=== PATIENT | female | born 1940 | race Caucasian/White ===

== ENCOUNTER 2017-01-31 19:17 | Inpatient (IN) | payer MEDICARE ==
[2017-01-31] MEDS ORDERED: SODIUM CHLORIDE 0.9% 1,000 ML IV STA (19:33)
[2017-01-31] MEDS ORDERED: IPRATROPIUM-ALBUTEROL 3 ML NEB INHALATION STA (19:33)
[2017-01-31 20:06] LABS: Basophils # (A) 0.1 k/uL (0-0.2); Basophils % (A) 1 %; CHCM 32.4; Eosinophils # (A) 0.3 k/uL (0-0.7); Eosinophils % (A) 4 %; HCT 35.3 % (34.0-46.0); HDW 2.57; HGB 11.3 gm/dL (11.4-16.0); Luc # (Auto) 0.21; Luc % (Auto) 3; Lymphocytes # (A) 2.6 k/uL (1.0-4.8); Lymphocytes % (A) 32 %; MCH 34.7 pg (25.0-35.0); MCHC 31.9 g/dL (31.0-37.0); MCV 108.5 fL (80.0-100.0); Macrocytosis Moderate; Mean Platelet Volume 7.6; Monocytes # (A) 0.5 k/uL (0-1.0); Monocytes % (A) 6 %; Neutrophils # (A) 4.5 k/uL (1.3-7.7); Neutrophils % (A) 55 %; RBC 3.25 m/uL (3.80-5.40); RDW 13.4 % (11.5-15.5); WBC 8.2 k/uL (3.8-10.6); WBC (Perox) 7.97
[2017-01-31 20:10] LABS: Calcium 10.9 mg/dL (8.4-10.2); Magnesium 1.8 mg/dL (1.6-2.3); Potassium 3.8 mmol/L (3.5-5.1); Total Bilirubin 0.3 mg/dL (0.2-1.3)
--- NOTE | 2017-01-31 20:15 | XR ---
EXAMINATION TYPE: XR chest 2V DATE OF EXAM: 01/31/2017 COMPARISON: 06/01/2015 HISTORY: Difficulty breathing TECHNIQUE: Frontal and lateral views of the chest are obtained. FINDINGS: Heart is enlarged. There are sternal wires. There is no heart failure. Lungs are clear of infiltrate. Bony thorax appears intact. There is spurring in thoracic spine. IMPRESSION: Mild cardiomegaly. No acute lung disease. There is improved aeration of left lung base c ompared to old exam.
[2017-01-31 20:21] LABS: Creatine Kinase 41 U/L (30-135)
[2017-01-31 20:25] LABS: INR 0.9 (<1.2); Prothrombin Time 9.4 sec (9.0-12.0)
[2017-01-31 20:27] LABS: Partial Thromboplastin Time 20.5 sec (22.0-30.0)
[2017-01-31 20:32] LABS: Creatine Kinase MB 0.4 ng/mL (0.0-2.4); Troponin I <0.012 ng/mL (0.000-0.034)
[2017-01-31] MEDS ORDERED: methylPREDNISolone SOD SUCCI 125 MG/2 ML VIAL IV STA (20:49)
--- NOTE | 2017-01-31 20:49 | ED ---
General Adult HPI - General Chief complaint: Shortness of Breath Stated complaint: Diff Breathing Time Seen by Provider: 01/31/17 19:33 Source: patient, RN notes reviewed, old records reviewed Mode of arrival: wheelchair Limitations: no limitations - History of Present Illness Initial comments: This is a 76-year-old female with a significant and extensive medical history coming in with shortness of breath. Symptoms of COPD and CHF. Patient states she can't sleep at night [place] L flap and has no ability to function overdo activity without getting severely short of breath. No fevers, does have increased cough and congestion no travel history. Patient denies recent hospitalization - Related Data Home Medications Medication Instructions Recorded Confirmed Acetaminophen-Codeine 300-30mg 1 tab PO Q6H PRN 01/30/15 05/30/16 [Tylenol w/codeine #3] Aspirin 81 mg PO DAILY 01/30/15 05/30/16 Atorvastatin [Lipitor] 80 mg PO HS 01/30/15 05/30/16 Clopidogrel [Plavix] 75 mg PO DAILY 01/30/15 05/30/16 Fluticasone Nasal [place] [Flonase 2 spray EA NOSTRIL DAILY PRN 01/30/15 05/30/16 Nasal [place]] Glucosam/Beni-Msm1/C/Zechariah/Bosw 1 tab PO BID 01/30/15 05/30/16 [Glucosamine-Chondroitin Tablet] Levothyroxine Sodium [Synthroid] 150 mcg PO QAM 01/30/15 05/30/16 Meclizine [Antivert] 25 mg PO HS 01/30/15 05/30/16 Multivitamins, Thera [Multivitamin 1 tab PO DAILY 01/30/15 05/30/16 (formulary)] Calcium Carbonate/Vitamin D3 1 tab PO DAILY 03/27/15 05/30/16 [Calcium 600-Vit D3 400 Tablet] Docusate Sodium [Dok] 100 mg PO HS PRN 03/27/15 05/30/16 Magnesium Oxide [Mag-Ox] 400 mg PO DAILY 03/27/15 05/30/16 Furosemide [Lasix] 20 mg PO 1600 03/28/15 05/30/16 Allopurinol [Zyloprim] 200 mg PO HS 05/15/16 05/30/16 Folic Acid 1 mg PO DAILY 05/15/16 05/30/16 Furosemide [Lasix] 40 mg PO QAM 05/15/16 05/30/16 Insulin Glargine [Lantus] 50 unit SQ HS 05/15/16 05/30/16 Insulin Glulisine [Apidra Solostar] 20 unit SQ HS PRN 05/30/16 05/30/16 Previous Rx's Medication Instructions Recorded Isosorbide Mononitrate ER [Imdur] 60 mg PO BID 1 Days tab 02/04/15 Thiamine [Vitamin B-1] 100 mg PO DAILY@1200 #30 tab 02/04/15 Metoprolol Tartrate [Lopressor] 25 mg PO BID #60 tab 03/28/15 Allergies Allergy/AdvReac Type Severity Reaction Status Date / Time hydrocodone bitartrate Allergy Unknown Nausea & Verified 01/31/17 19:23 [From Lortab] Vomiting mupirocin Allergy Rash/Hives Verified 01/31/17 19:23 Review of Systems ROS Statement: Those systems with pertinent positive or pertinent negative responses have been documented in the HPI. ROS Other: All systems not noted in ROS Statement are negative. Past Medical History Past Medical History: Coronary Artery Disease (CAD), Cancer, Chest Pain / Angina , Diabetes Mellitus, Eye Disorder, Hyperlipidemia, Hypertension, Myocardial Infarction ([place]), Osteoarthritis (OA), Pneumonia, Renal Disease, Thyroid Disorder Additional Past Medical History / Comment(s): Hx chest pain, nothing recent, hx pneumonia about a yr ago, hx skin cancer on right arm, gout, bilateral cataracts , current skin cancer on right calf. States kidneys do not function at 100%. Last Myocardial Infarction Date:: 03/2015 History of Any Multi-Drug Resistant Organisms: None Reported Past Surgical History: Cholecystectomy, Coronary Bypass/CABG, Heart Catheterization With Stent, Orthopedic Surgery Additional Past Surgical History / Comment(s): REMOVAL OF SKIN CANCER RIGHT ARM , broken ankle with plate inserted, triple bypass 08/2009. Past Anesthesia/Blood Transfusion Reactions: No Reported Reaction Date of Last Stent Placement:: 03/2015 Past Psychological History: No Psychological Hx Reported Smoking Status: Never smoker Past Alcohol Use History: Occasional Past Drug Use History: None Reported - Past Family History Mother Family Medical History: Cancer Father Family Medical History: Cancer General Exam Limitations: no limitations General appearance: alert, in no apparent distress Head exam: Present: atraumatic, normocephalic, normal inspection Eye exam: Present: normal appearance, PERRL, EOMI. Absent: scleral icterus, conjunctival injection, periorbital swelling ENT exam: Present: normal exam, mucous membranes moist Neck exam: Present: normal inspection. Absent: tenderness, meningismus, lymphadenopathy Respiratory exam: Present: normal lung sounds bilaterally, wheezes, rales, decreased breath sounds, prolonged expiratory. Absent: respiratory distress, rhonchi, stridor Cardiovascular Exam: Present: regular rate, normal rhythm, normal heart sounds. Absent: systolic murmur, diastolic murmur, rubs, gallop, clicks GI/Abdominal exam: Present: soft, normal bowel sounds. Absent: distended, tenderness, guarding, rebound, rigid Extremities exam: Present: normal inspection, full ROM, normal capillary refill. Absent: tenderness, pedal edema, joint swelling, calf tenderness Back exam: Present: normal inspection Neurological exam: Present: alert, oriented X3, CN II-XII intact Psychiatric exam: Present: normal affect, normal mood Skin exam: Present: warm, dry, intact, normal color. Absent: rash Course Vital Signs 01/31/17 01/31/17 01/31/17 19:20 19:43 19:54 Temperature 98 F Pulse Rate 72 Respiratory 16 22 Rate Blood Pressure 193/77 175/75 O2 Sat by Pulse 100 100 Oximetry 01/31/17 01/31/17 01/31/17 20:01 20:02 20:31 Temperature Pulse Rate 67 67 72 Respiratory 18 Rate Blood Pressure 168/78 O2 Sat by Pulse 100 Oximetry - Reevaluation(s) Reevaluation #1: 01/31/17 20:48 Patient with no real improvement after breathing treatment EKG Findings - EKG Comments: EKG Findings:: EKG shows sinus rhythm with 71, DC 170, QRS 92, QTc 454 Medical Decision Making - Medical Decision Making SMA-6 female here for evaluation of shortness of breath. Exertional dyspnea. Inability laid out flat. Patient has symptoms of congestive heart failure. Symptoms of chronic bronchitis, will admit for treatment of both - Lab Data Result diagrams: 01/31/17 19:30 01/31/17 19:30 Lab Results 01/31/17 01/31/17 01/31/17 Range/Units 19:30 19:30 19:30 WBC 8.2 (3.8-10.6) k/uL RBC 3.25 L (3.80-5.40) m/uL Hgb 11.3 L (11.4-16.0) gm/dL Hct 35.3 (34.0-46.0) % MCV 108.5 H (80.0-100.0) fL MCH 34.7 (25.0-35.0) pg MCHC 31.9 (31.0-37.0) g/dL RDW 13.4 (11.5-15.5) % Plt Count 257 (150-450) k/uL Neutrophils % 55 % Lymphocytes % 32 % Monocytes % 6 % Eosinophils % 4 % Basophils % 1 % Neutrophils # 4.5 (1.3-7.7) k/uL Lymphocytes # 2.6 (1.0-4.8) k/uL Monocytes # 0.5 (0-1.0) k/uL Eosinophils # 0.3 (0-0.7) k/uL Basophils # 0.1 (0-0.2) k/uL Macrocytosis Moderate PT (9.0-12.0) sec INR (<1.2) APTT (22.0-30.0) sec D-Dimer (<0.60) mg/L FEU Sodium 139 (137-145) mmol/L Potassium 3.8 (3.5-5.1) mmol/L Chloride 101 (98-107) mmol/L Carbon Dioxide 30 (22-30) mmol/L Anion Gap 8 mmol/L BUN 27 H (7-17) mg/dL Creatinine 1.94 H (0.52-1.04) mg/dL Est GFR (MDRD) Af Amer 30 (>60 ml/min/1.73 sqM) Est GFR (MDRD) Non-Af 25 (>60 ml/min/1.73 sqM) Glucose 164 H (74-99) mg/dL Calcium 10.9 H (8.4-10.2) mg/dL Magnesium 1.8 (1.6-2.3) mg/dL Total Bilirubin 0.3 (0.2-1.3) mg/dL AST 24 (14-36) U/L ALT 22 (9-52) U/L Alkaline Phosphatase 86 (38-126) U/L Total Creatine Kinase 41 (30-135) U/L CK-MB (CK-2) 0.4 (0.0-2.4) ng/mL CK-MB (CK-2) Rel Index 1.0 Troponin I <0.012 (0.000-0.034) ng/mL NT-Pro-B Natriuret Pep pg/mL Total Protein 6.0 L (6.3-8.2) g/dL Albumin 3.4 L (3.5-5.0) g/dL 01/31/17 01/31/17 Range/Units 19:30 19:30 WBC (3.8-10.6) k/uL RBC (3.80-5.40) m/uL Hgb (11.4-16.0) gm/dL Hct (34.0-46.0) % MCV (80.0-100.0) fL MCH (25.0-35.0) pg MCHC (31.0-37.0) g/dL RDW (11.5-15.5) % Plt Count (150-450) k/uL Neutrophils % % Lymphocytes % % Monocytes % % Eosinophils % % Basophils % % Neutrophils # (1.3-7.7) k/uL Lymphocytes # (1.0-4.8) k/uL Monocytes # (0-1.0) k/uL Eosinophils # (0-0.7) k/uL Basophils # (0-0.2) k/uL Macrocytosis PT 9.4 (9.0-12.0) sec INR 0.9 (<1.2) APTT 20.5 L (22.0-30.0) sec D-Dimer 1.99 H (<0.60) mg/L FEU Sodium (137-145) mmol/L Potassium (3.5-5.1) mmol/L Chloride (98-107) mmol/L Carbon Dioxide (22-30) mmol/L Anion Gap mmol/L BUN (7-17) mg/dL Creatinine (0.52-1.04) mg/dL Est GFR (MDRD) Af Amer (>60 ml/min/1.73 sqM) Est GFR (MDRD) Non-Af (>60 ml/min/1.73 sqM) Glucose (74-99) mg/dL Calcium (8.4-10.2) mg/dL Magnesium (1.6-2.3) mg/dL Total Bilirubin (0.2-1.3) mg/dL AST (14-36) U/L ALT (9-52) U/L Alkaline Phosphatase (38-126) U/L Total Creatine Kinase (30-135) U/L CK-MB (CK-2) (0.0-2.4) ng/mL CK-MB (CK-2) Rel Index Troponin I (0.000-0.034) ng/mL NT-Pro-B Natriuret Pep 466 pg/mL Total Protein (6.3-8.2) g/dL Albumin (3.5-5.0) g/dL Disposition Clinical Impression: Morbid obesity, Acute exacerbation of chronic obstructive pulmonary disease ( COPD), CHF (congestive heart failure) Disposition: ADMITTED IP TO THIS HOSP Condition: Fair Referrals: Ric Welsh DO [Primary Care Provider] - 1-2 days
[2017-01-31] MEDS: FUROSEMIDE 10 MG/ML 4 ML VIAL IV SCH (22:25)
[2017-01-31] MEDS ORDERED: NITROGLYCERIN SL TABS 0.4 MG TAB SUBLINGUAL PRN (23:07)
[2017-01-31 23:20] LABS: Glucose,Whole Blood 157 mg/dL (75-99)
[2017-02-01] MEDS: ATORVASTATIN 80 MG TAB PO SCH ×2 (00:09→21:18)
[2017-02-01] MEDS: DOCUSATE 100 MG CAP PO SCH ×2 (00:09→21:19)
[2017-02-01] MEDS: ALLOPURINOL 100 MG TAB PO SCH ×2 (00:09→21:19)
[2017-02-01] MEDS: METOPROLOL TARTRATE 25 MG TAB PO SCH ×3 (00:09→21:19)
[2017-02-01] MEDS: ISOSORBIDE MONONITRATE ER 60 MG TAB.ER.24H PO SCH ×3 (00:10→21:18)
[2017-02-01] MEDS: MECLIZINE 25 MG TAB PO SCH ×2 (00:10→21:19)
[2017-02-01] MEDS: traMADol 50 MG TAB PO PRN (00:16)
[2017-02-01] MEDS: methylPREDNISolone SOD SUCCI 125 MG/2 ML VIAL IV SCH ×2 (01:08→06:31)
[2017-02-01] MEDS: LEVOTHYROXINE 75 MCG TAB PO SCH (06:31)
[2017-02-01 07:24] LABS: Glucose,Whole Blood 295 mg/dL (75-99)
[2017-02-01] MEDS: ENOXAPARIN 40 MG/0.4 ML SYRINGE SQ SCH (07:49)
[2017-02-01] MEDS: FUROSEMIDE 10 MG/ML 4 ML VIAL IV SCH ×3 (07:49→21:34)
[2017-02-01] MEDS: ASPIRIN 81 MG PO SCH (07:50)
[2017-02-01] MEDS: THIAMINE 100 MG TAB PO SCH (07:50)
[2017-02-01] MEDS: MAGNESIUM OXIDE 400 MG TAB PO SCH (07:50)
[2017-02-01] MEDS: MULTIVITAMINS, THERA 1 EACH TAB PO SCH (07:51)
[2017-02-01] MEDS: FOLIC ACID 1 MG TAB PO SCH (07:51)
[2017-02-01] MEDS ORDERED: IPRATROPIUM-ALBUTEROL 3 ML NEB INHALATION SCH (08:00)
[2017-02-01] MEDS ORDERED: FUROSEMIDE 20 MG TAB PO SCH ×2 (09:00→15:00)
--- NOTE | 2017-02-01 12:04 | P.CNPUL ---
History of Present Illness Consult date: 02/01/17 Requesting physician: Abiodun Beaulieu Reason for consult: dyspnea Chief complaint: Exertional dyspnea History of present illness: This is a 76-year-old white female patient with past medical history of coronary artery disease, diabetes mellitus type 2, hyperlipidemia, hypertension , myocardial infarction, osteoarthritis, pneumonia, renal disease and hypothyroidism that presented to the emergency department on 01/31/2017 with with a complaint of increasing shortness of breath with any exertion and inability to lie down flat for the past few days. She states she is chronically short of breath on a regular basis but lately she has been having difficulty even ambulating around the house or preparing meals for herself without having to sit down and rest and catch her breath before proceeding. She has been sleeping in her recliner at night. 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 She has seasonal ALLERGIES and has sinus congestion on the regular basis for which she is on some type of nasal spray that was given to her by her PCP Dr. Juliann Welsh. She states that became worse with this episode of illness, she complains of slight frontal sinus pressure, itchy watery eyes, and postnasal drip. No significant cough, no wheezing, no rhonchi. She does not weigh herself at home, but she is on home dose Lasix on a regular basis with 40 mg in the morning and 20 mg in the afternoon. Chest x- ray from 01/31/2017 showed mild cardiomegaly but no evidence of heart failure, lungs are clear of infiltrates. No evidence of leukocytosis. D-dimer was elevated at 1.99. Her creatinine is at 1.94. Troponin is less than 0.012 and proBNP is 466. Patient was started on IV Lasix 40 every 12 hours, given IV Solu -Medrol and DuoNeb nebulized treatments. She states she is feeling somewhat better today, her breathing is still dyspneic on exertion even going to the bedside commode. No JVD appreciated, trace edema in lower extremities. Patient is morbidly obese. Lung sounds are clear to auscultation, no rhonchi, no wheezing or rales appreciated. She does not appear to be in any acute distress. She did have an episode of chest tightness yesterday in the morning prior to coming into the emergency room that was relieved with sublingual nitro. No chest pain while here in the hospital. Last echo from 02/02/2015 was reviewed and showed no evidence of pulmonary hypertension, right ventricular systolic pressure is normal at less than 35 mmHg. Mild MR and TR present. EF between 55 and 60%. This will be repeated today. Cardiology is following. In view of her elevated d-dimer, we will obtain a VQ scan, unable to do CTA chest related to her renal function. Diagnoses of COPD is unlikely. Review of Systems All systems: negative Constitutional: Denies chills, Denies fever Eyes: denies blurred vision, denies pain Ears, nose, mouth and throat: Denies headache, Denies sore throat Cardiovascular: Denies chest pain, Denies shortness of breath Respiratory: Denies cough Gastrointestinal: Denies abdominal pain, Denies diarrhea, Denies nausea, Denies vomiting Genitourinary: Denies dysuria, Denies hematuria Musculoskeletal: Denies myalgias Integumentary: Denies pruritus, Denies rash Neurological: Denies numbness, Denies weakness Psychiatric: Denies anxiety, Denies depression Endocrine: Denies fatigue, Denies weight change Past Medical History Past Medical History: Coronary Artery Disease (CAD), Cancer, Chest Pain / Angina , Diabetes Mellitus, Eye Disorder, Hyperlipidemia, Hypertension, Myocardial Infarction ([place]), Osteoarthritis ([place]), Pneumonia, Renal Disease, Thyroid Disorder Additional Past Medical History / Comment(s): Hx chest pain, nothing recent, hx pneumonia about a yr ago, hx skin cancer on right arm, gout, bilateral cataracts , current skin cancer on right calf. States kidneys do not function at 100%. Last Myocardial Infarction Date:: 03/2015 History of Any Multi-Drug Resistant Organisms: None Reported Past Surgical History: Cholecystectomy, Coronary Bypass/CABG, Heart Catheterization With Stent, Orthopedic Surgery Additional Past Surgical History / Comment(s): REMOVAL OF SKIN CANCER RIGHT ARM , broken ankle with plate inserted, triple bypass 08/2009. Past Anesthesia/Blood Transfusion Reactions: No Reported Reaction Date of Last Stent Placement:: 03/2015 Past Psychological History: No Psychological Hx Reported Additional Psychological History / Comment(s): . No recent travels. No experience. No animal exposures. Does not specifically recall an ill contacts. Smoking Status: Never smoker Past Alcohol Use History: Occasional Past Drug Use History: None Reported - Past Family History Mother Family Medical History: Cancer Father Family Medical History: Cancer Medications and Allergies Home Medications Medication Instructions Recorded Confirmed Type Aspirin 81 mg PO DAILY 01/30/15 01/31/17 History Atorvastatin [Lipitor] 80 mg PO HS 01/30/15 01/31/17 History Levothyroxine Sodium [Synthroid] 150 mcg PO DAILY 01/30/15 01/31/17 History Meclizine [Antivert] 25 mg PO HS 01/30/15 01/31/17 History Multivitamins, Thera [Multivitamin 1 tab PO DAILY 01/30/15 01/31/17 History (formulary)] Docusate Sodium [Dok] 100 mg PO HS 03/27/15 01/31/17 History Magnesium Oxide [Mag-Ox] 400 mg PO DAILY 03/27/15 01/31/17 History Furosemide [Lasix] 20 mg PO DAILY@1500 03/28/15 01/31/17 History Metoprolol Tartrate [Lopressor] 25 mg PO BID #60 tab 03/28/15 01/31/17 Rx Allopurinol [Zyloprim] 200 mg PO HS 05/15/16 01/31/17 History Folic Acid 1 mg PO DAILY 05/15/16 01/31/17 History Insulin Glulisine [Apidra Solostar] 10 - 30 unit SQ HS PRN 05/30/16 01/31/17 History Cranberry Fruit Extract [Cranberry] 200 mg PO DAILY 01/31/17 01/31/17 History Furosemide [Lasix] 40 mg PO DAILY 01/31/17 01/31/17 History Insulin Glargine,Hum.rec.anlog 65 units SQ HS 01/31/17 01/31/17 History [[place] Solostar] Isosorbide Mononitrate [Imdur] 120 mg PO BID 01/31/17 01/31/17 History Nitroglycerin Sl Tabs [Nitrostat] 0.4 mg PO Q5M PRN 01/31/17 01/31/17 History Thiamine [Vitamin B-1] 100 mg PO DAILY 01/31/17 01/31/17 History traMADol HCL [Ultram] 50 mg PO Q6H PRN 01/31/17 01/31/17 History Allergies Allergy/AdvReac Type Severity Reaction Status Date / Time hydrocodone bitartrate Allergy Unknown Nausea & Verified 01/31/17 20:53 [From Lortab] Vomiting mupirocin Allergy Rash/Hives Verified 01/31/17 20:53 Physical Exam Vitals: Vital Signs Temp Pulse Pulse Resp BP BP Pulse Ox 02/01/17 09:18 72 02/01/17 09:08 72 02/01/17 07:00 97.2 F L 68 18 142/68 93 L 01/31/17 22:53 96.8 F L 61 18 157/78 98 01/31/17 21:40 98.7 F 01/31/17 21:31 61 18 187/85 99 01/31/17 20:31 72 18 168/78 100 01/31/17 20:02 67 01/31/17 20:01 67 01/31/17 19:54 22 01/31/17 19:43 175/75 100 01/31/17 19:20 98 F 72 16 193/77 100 Intake and Output 01/31/17 02/01/17 02/01/17 22:59 06:59 14:59 Intake Total 200 Balance 200 Intake: Oral 200 Other: Voiding Method Bedside Commode # Voids 1 6 Weight 120.5 kg Obese, comfortable not in acute distress. Head exam was generally normal. There was no scleral icterus or corneal arcus. Mucous membranes were moist. Neck is supple and there is significant crowding of the posterior pharynx. No goiter or neck masses. Lungs sounds are diminished and no rackles in the lung bases. No wheezes. No rhonchi. Cardiac exam revealed the PMI to be normally situated and sized. The rhythm was regular and no extrasystoles. There were no murmurs, rubs, clicks, or gallops. Sternum stable clean and intact. Abdominal exam revealed normal bowel sounds. The abdomen was soft, non-tender, and without masses, organomegaly, or appreciable enlargement of the abdominal aorta. Examination of the extremities revealed easily palpable radial, femoral and pedal pulses. There was no cyanosis, clubbing or edema. Skin: No rashes, no nevi. Normal color and turgor Neurologic: Cranial nerves II through XII are grossly intact, no focal deficits Psychiatric: A and O 3, appropriate insight and judgment Results - Laboratory Findings CBC and BMP: 01/31/17 19:30 01/31/17 19:30 PT/INR, D-dimer PT 9.4 sec (9.0-12.0) 01/31/17 19:30 INR 0.9 (<1.2) 01/31/17 19:30 D-Dimer 1.99 mg/L FEU (<0.60) H 01/31/17 19:30 Abnormal lab findings: Abnormal Labs 01/31/17 01/31/17 01/31/17 19:30 19:30 19:30 RBC 3.25 L Hgb 11.3 L MCV 108.5 H APTT 20.5 L D-Dimer 1.99 H BUN 27 H Creatinine 1.94 H Glucose 164 H POC Glucose (mg/dL) Calcium 10.9 H Total Protein 6.0 L Albumin 3.4 L 01/31/17 02/01/17 23:15 07:20 RBC Hgb MCV APTT D-Dimer BUN Creatinine Glucose POC Glucose (mg/dL) 157 H 295 H Calcium Total Protein Albumin - Diagnostic Findings Chest x-ray: report reviewed Assessment and Plan Plan: Assessment: #1. Acute dyspnea due to probable acute congestive heart failure, likely diastolic based on her echocardiogram from 01/31/2015 with EF of 55-60%. There is a component of general deconditioning and obesity related chronic dyspnea. Diagnoses of COPD is less likely. #2. Elevated d-dimer 1.99 on 01/31/2017. Unable to do CTA chest to rule out PE , we'll proceed with VQ scan in view of patient's renal profile #3. Coronary artery disease with previous bypass surgery and previous coronary interventions and stenting #4. Morbid obesity #5. Diabetes mellitus, insulin-dependent #6. Hypothyroidism #7. Hypertension #8. History of skin cancer #9. Osteoarthritis Plan We'll obtain a VQ scan to rule out pulmonary embolism. We'll obtain a 2-D echo today to evaluate LV function. Patient is responding well to IV Lasix. IV steroids will be discontinued as well as the DuoNeb nebulizer treatments. Diagnoses of COPD is less likely. Patient has chronic dyspnea on a regular basis due to her obesity and overall deconditioning. There may be a component of fluid overload, unable to assess the weight changes as the patient does not weigh herself on a regular basis. She is on Lasix at home twice a day and she does have chronic renal disease, today her creatinine is at 1.94. X-ray results from 01/31/2017 were reviewed and showed mild cardiomegaly but no evidence of heart failure or infiltrates. We'll continue to closely follow with you. Continue GI and DVT prophylaxis. I performed a history & physical examination of the patient and discussed their management with my nurse practitioner, Nicol Larson. I reviewed the nurse practitioner's note and agree with the documented findings and plan of care. Lung sounds are clear diminished at the bases. No rhonchi no wheezing, no signs of chest congestion. Obtain VQ scan today to rule out PE. I attest the documentation by the nurse practitioner
--- NOTE | 2017-02-01 12:11 | NM ---
EXAMINATION TYPE: NM pul vent and perfuse DATE OF EXAM: 02/01/2017 COMPARISON: NONE HISTORY: TECHNIQUE: Utilizing inhalation of 76.2 mCi Tc 99m DTPA aerosol and intravenous injection of 5.4 mCi of Tc 99m MAA, ventilation and perfusion images are acquired post injection in multiple projections. FINDINGS: Normal radiotracer distribution is noted in the lungs. There is no evidence of mismatched defects. IMPRESSION: THIS EXAMINATION IS WITHIN NORMAL LIMITS.
[2017-02-01 12:21] LABS: Glucose,Whole Blood 392 mg/dL (75-99)
[2017-02-01] MEDS: INSULIN LISPRO (humaLOG) 300 UNIT/3 ML VIAL SQ SCH ×3 (12:29→21:26)
[2017-02-01 14:02] VITALS: BMI 51.8
--- NOTE | 2017-02-01 15:20 | ECHOF ---
Referral Reason:sob MEASUREMENTS -------- HEIGHT: 152.4 cm WEIGHT: 120.2 kg BP: RVIDd: 2.2 cm (< 3.3) IVSd: 1.7 cm (0.6 - 1.1) LVIDd: 3.0 cm (3.9 - 5.3) LVPWd: 1.7 cm (0.6 - 1.1) IVSs: 1.9 cm LVIDs: 1.9 cm LVPWs: 1.8 cm Ao Diam: 3.0 cm (2.0 - 3.7) AV Cusp: 1.9 cm (1.5 - 2.6) LA Diam: 3.2 cm (2.7 - 3.8) MV EXCURSION: 13.883 mm (> 18.000) MV EF SLOPE: 45 mm/s (70 - 150) EPSS: 0.4 cm MV E Johny: 0.81 m/s MV DecT: 258 ms MV A Johny: 1.11 m/s MV E/A Ratio: 0.73 RAP: 5.00 mmHg RVSP: 10.65 mmHg FINDINGS -------- Sinus rhythm. This was a technically difficult study with suboptimal views. There is moderate concentric left ventricular hypertrophy. Overall left ventricular systolic function is normal with, an EF between 55 - 60 %. The diastolic filling pattern is normal for the age of the patient {E/E'}. The right ventricle is normal in size and function. The left atrium is normal in size. The right atrium is normal in size. 1.5mg of Definity was utilized for enhancement of images Aortic valve is trileaflet and is mildly thickened. The mitral valve leaflets are mildly thickened. Mild mitral annular calcification present. There is trace mitral regurgitation. Trace tricuspid regurgitation present. The right ventricular systolic pressure, as measured by Doppler, is 10.65mmHg. Pulmonic valve appears structurally normal. The aortic root size is normal. There is a trivial pericardial effusion present. CONCLUSIONS -------- 1. Sinus rhythm. 2. Aortic valve is trileaflet and is mildly thickened. 3. The mitral valve leaflets are mildly thickened. 4. Mild mitral annular calcification present. 5. There is trace mitral regurgitation. 6. Trace tricuspid regurgitation present. 7. The right ventricular systolic pressure, as measured by Doppler, is 10.65mmHg. 8. Pulmonic valve appears structurally normal. 9. The aortic root size is normal. 10. There is a trivial pericardial effusion present. 11. This was a technically difficult study with suboptimal views. 12. There is moderate concentric left ventricular hypertrophy. 13. Overall left ventricular systolic function is normal with, an EF between 55 - 60 %. 14. The diastolic filling pattern is normal for the age of the patient {E/E'} 15. The right ventricle is normal in size and function. 16. The left atrium is normal in size. 17. The right atrium is normal in size. 18. 1.5mg of Definity was utilized for enhancement of images EXTENSION SUPERVISOR: Jeanine Carreno RDCS
--- NOTE | 2017-02-01 15:52 | HP ---
HISTORY AND PHYSICAL DATE OF ADMISSION: 01/31/2017 DATE OF SERVICE: 02/01/2017 PRESENTING COMPLAINT: Short of breath. HISTORY OF PRESENT COMPLAINT: A very pleasant, 76-year-old patient of Dr. Welsh who has extensive medical history including coronary artery disease with a bypass, diabetes, hyperlipidemia, hypertension, osteoarthritis, skin cancer, hypothyroid. The patient has a baseline that is short of breath. Has chronic edema. Pretty much sleeps in a recliner. Patient presents with worsening shortness of breath. Denies any cough. No fever. No worsening of edema. The patient did get some Solu-Medrol to which she felt a bit better and also received some IV Lasix. REVIEW OF SYSTEMS: CONSTITUTIONAL: Tired. HEENT: None. RESPIRATORY: As above. CARDIOVASCULAR: No chest pain. GASTROINTESTINAL: None. GENITOURINARY: None. MUSCULOSKELETAL: Some pain in the joints. DERMATOLOGICAL: Chronic skin changes. HEMATOLOGIC: None. LYMPHATIC: None. PSYCHIATRY: None. NEUROLOGICAL: None. PAST HISTORY: Past history of coronary artery disease, diabetes, hypertension, hyperlipidemia, osteoarthritis, skin cancer, chronic kidney disease, hypothyroid, possibly congestive heart failure. PAST SURGICAL HISTORY: Cholecystectomy, coronary bypass, cardiac cath with stent, skin cancer right arm, broken ankle with plate inserted, triple bypass in 2009 and 2014. SOCIAL HISTORY: . No smoking. Alcohol occasionally. FAMILY HISTORY: Family history of cancer, type unknown. HOME MEDICATIONS: 1. Allopurinol 200 mg q.h.s. 2. Antivert 25 mg q.h.s. 3. Imdur 120 mg p.o. b.i.d. 4. Colace 100 mg p.o. q.h.s. 5. Lipitor 80 mg q.h.s. 6. Ultram 50 mg q.6 p.r.n. 7. Thiamine 100 mg p.o. daily. 8. Nitrostat 0.4 sublingual q.5 p.r.n. 9. Multivitamin 1 tab p.o. daily. 10.Lopressor 25 p.o. b.i.d. 11.Magnesium oxide 400 mg p.o. daily. 12.Synthroid 150 mcg p.o. daily. 13.Apidra 10 to 30 am subcutaneous q.h.s. p.r.n. 14.Insulin Lantus 65 units subcutaneous q.h.s. 15.Lasix 40 mg p.o. daily, 20 mg p.o. daily. 16.Folic acid 1 mg p.o. daily. 17.Cranberry 200 mg p.o. daily. 18.Aspirin 81 mg p.o. daily. ALLERGIES: Allergies to LORTAB, MUPIROCIN. PHYSICAL EXAMINATION: On examination vital signs on presentation: Temperature 98, pulse 72, respirations 16, blood pressure 193/77, pulse ox 100% on room air. GENERAL APPEARANCE: Well built, BMI 51.9, sitting up in a chair, not in distress. EYES: Pupils equal. Conjunctivae normal. HEENT: Oral cavity normal. NECK: Short thick. JVD unable to assess. Mass not palpable. RESPIRATORY: Effort increased. LUNGS: Distant breath sounds. HEART: Sounds muffled. Edema. ABDOMEN: Distended, soft. Liver and spleen not palpable. LYMPHATIC: No lymph node palpable in the neck or axillae. PSYCHIATRY: Alert and oriented x3. Mood and affect normal. NEUROLOGICAL: Pupils equal. Cranial nerves grossly intact. Power and sensation grossly intact. MUSCULOSKELETAL: Evidence of osteoarthritis especially in the hands. INVESTIGATIONS: White count 8.2, hemoglobin 11.3. D-dimer 1.99. Potassium 3.8. BUN 27, creatinine 1.94. Accu-Cheks are noted. EKG normal sinus rhythm, poor R-wave progression. Chest x-ray, mild cardiomegaly. V/Q scan normal limits. The patient's proBNP is 466. ASSESSMENT: 1. This is a patient who is at baseline got short of breath, presented with worsening short of breath likely multifactorial. Pulmonary embolism is ruled out. ProBNP is only 466. Patient may have an element of cor pulmonale and obesity hypoventilation syndrome. 2. Obesity hypoventilation syndrome. There may be an element of chronic obstructive pulmonary disease given that patient did feel better with steroids. 3. Morbid obesity, body mass index 51.9. 4. Chronic kidney disease, stage IV, probably from hypertensive nephrosclerosis with a GFR of 25. 5. Coronary artery disease with prior history of CABG. 6. Diabetes mellitus, type 2, chronically on insulin, uncontrolled from steroids. 7. Hyperlipidemia. 8. Essential hypertension with urgency. 9. Primary osteoarthritis multiple joints. 10.Hypothyroid. PLAN: Patient was given some burst of steroids. A 2-D echo has been ordered. Home medication will be resumed. Follow electrolytes closely. Both Pulmonary and Cardiology were consulted. Care was discussed with the patient. A 2-D echocardiogram is pending. AYALA / CHAPISN: [id number] /
[2017-02-01 17:19] LABS: Glucose,Whole Blood 369 mg/dL (75-99)
[2017-02-01 21:20] LABS: Hemoglobin A1C 6.5 % (4.2-6.1)
[2017-02-01 22:03] LABS: Glucose,Whole Blood 299 mg/dL (75-99)
[2017-02-02] MEDS: traMADol 50 MG TAB PO PRN (00:16)
[2017-02-02] MEDS: LEVOTHYROXINE 75 MCG TAB PO SCH (06:29)
[2017-02-02 07:25] LABS: Glucose,Whole Blood 202 mg/dL (75-99)
[2017-02-02] MEDS: INSULIN LISPRO (humaLOG) 300 UNIT/3 ML VIAL SQ SCH ×4 (07:46→20:41)
[2017-02-02] MEDS: ASPIRIN 81 MG PO SCH (07:47)
[2017-02-02] MEDS: ENOXAPARIN 40 MG/0.4 ML SYRINGE SQ SCH (07:47)
[2017-02-02] MEDS: METOPROLOL TARTRATE 25 MG TAB PO SCH ×2 (07:47→20:10)
[2017-02-02] MEDS: FOLIC ACID 1 MG TAB PO SCH (07:48)
[2017-02-02] MEDS: FUROSEMIDE 10 MG/ML 4 ML VIAL IV SCH (07:48)
[2017-02-02] MEDS: MAGNESIUM OXIDE 400 MG TAB PO SCH (07:48)
[2017-02-02] MEDS: THIAMINE 100 MG TAB PO SCH (07:48)
[2017-02-02] MEDS: ISOSORBIDE MONONITRATE ER 60 MG TAB.ER.24H PO SCH ×2 (07:48→20:09)
[2017-02-02] MEDS: MULTIVITAMINS, THERA 1 EACH TAB PO SCH (07:49)
[2017-02-02 08:20] LABS: Calcium 9.6 mg/dL (8.4-10.2); Potassium 4.3 mmol/L (3.5-5.1)
[2017-02-02 12:34] LABS: Glucose,Whole Blood 239 mg/dL (75-99)
[2017-02-02] MEDS ORDERED: LORazepam 0.5 MG TAB PO PRN (15:04)
--- NOTE | 2017-02-02 15:08 | P.PN ---
Subjective Progress Note Date: 02/02/17 Principal diagnosis: Exertional dyspnea secondary to obesity, deconditioning, and possible underlying cardiac component and diastolic heart failure. This is a 76-year-old white female patient with past medical history of coronary artery disease, diabetes mellitus type 2, hyperlipidemia, hypertension , myocardial infarction, osteoarthritis, pneumonia, renal disease and hypothyroidism that presented to the emergency department on 01/31/2017 with with a complaint of increasing shortness of breath with any exertion and inability to lie down flat for the past few days. She states she is chronically short of breath on a regular basis but lately she has been having difficulty even ambulating around the house or preparing meals for herself without having to sit down and rest and catch her breath before proceeding. She has been sleeping in her recliner at night. 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 She has seasonal ALLERGIES and has sinus congestion on the regular basis for which she is on some type of nasal spray that was given to her by her PCP Dr. Juliann Welsh. She states that became worse with this episode of illness, she complains of slight frontal sinus pressure, itchy watery eyes, and postnasal drip. No significant cough, no wheezing, no rhonchi. She does not weigh herself at home, but she is on home dose Lasix on a regular basis with 40 mg in the morning and 20 mg in the afternoon. Chest x- ray from 01/31/2017 showed mild cardiomegaly but no evidence of heart failure, lungs are clear of infiltrates. No evidence of leukocytosis. D-dimer was elevated at 1.99. Her creatinine is at 1.94. Troponin is less than 0.012 and proBNP is 466. Patient was started on IV Lasix 40 every 12 hours, given IV Solu -Medrol and DuoNeb nebulized treatments. She states she is feeling somewhat better today, her breathing is still dyspneic on exertion even going to the bedside commode. No JVD appreciated, trace edema in lower extremities. Patient is morbidly obese. Lung sounds are clear to auscultation, no rhonchi, no wheezing or rales appreciated. She does not appear to be in any acute distress. She did have an episode of chest tightness yesterday in the morning prior to coming into the emergency room that was relieved with sublingual nitro. No chest pain while here in the hospital. Last echo from 02/02/2015 was reviewed and showed no evidence of pulmonary hypertension, right ventricular systolic pressure is normal at less than 35 mmHg. Mild MR and TR present. EF between 55 and 60%. This will be repeated today. Cardiology is following. In view of her elevated d-dimer, we will obtain a VQ scan, unable to do CTA chest related to her renal function. Diagnoses of COPD is unlikely. Patient was reevaluated today on 02/02/2017, doing well, she was mostly admitted with chronic shortness of breath upon exertion. Patient never smoked, and never had any documented history of asthma or COPD. Patient was felt to have shortness of breath secondary to deconditioning/obesity, and possibly some underlying cardiac component to explain her shortness of breath. Patient may have underlying coronary artery disease, she does have a cardiac history. At any rate her echocardiogram showed no evidence of pulmonary hypertension, she had some minimal mitral valve disease, she had normal ejection fraction, and her VQ scan was also normal, no evidence of thromboembolic disease. Patient again never smoked and she never had any documented history of COPD plus or symptoms of mild COPD symptoms. And the clinical findings on her pulmonary exam are relatively normal Objective - Vital Signs Vital signs: Vital Signs Temp 97.2 F L 02/02/17 07:00 Pulse 71 02/02/17 07:00 Resp 18 02/02/17 07:00 BP 144/66 02/02/17 07:00 Pulse Ox 93 L 02/02/17 07:00 Intake & Output 02/01/17 02/02/17 02/02/17 18:59 06:59 18:59 Intake Total 775 Balance 775 Weight 120.5 kg Intake: Oral 775 Other: # Voids 2 3 2 # Bowel Movements 1 0 - Exam Obese, comfortable not in acute distress. Head exam was generally normal. There was no scleral icterus or corneal arcus. Mucous membranes were moist. Neck is supple and there is significant crowding of the posterior pharynx. No goiter or neck masses. Lungs sounds are diminished and no rackles in the lung bases. No wheezes. No rhonchi. Cardiac exam revealed the PMI to be normally situated and sized. The rhythm was regular and no extrasystoles. There were no murmurs, rubs, clicks, or gallops. Sternum stable clean and intact. Abdominal exam revealed normal bowel sounds. The abdomen was soft, non-tender, and without masses, organomegaly, or appreciable enlargement of the abdominal aorta. Examination of the extremities revealed easily palpable radial, femoral and pedal pulses. There was no cyanosis, clubbing or edema. Skin: No rashes, no nevi. Normal color and turgor Neurologic: Cranial nerves II through XII are grossly intact, no focal deficits Psychiatric: A and O 3, appropriate insight and judgment - Labs CBC & Chem 7: 01/31/17 19:30 02/02/17 07:26 Labs: Abnormal Lab Results - Last 24 Hours (Table) 01/31/17 02/01/17 02/01/17 Range/Units 19:30 17:14 20:16 BUN (7-17) mg/dL Creatinine (0.52-1.04) mg/dL Glucose (74-99) mg/dL POC Glucose (mg/dL) 369 H 299 H (75-99) mg/dL Hemoglobin A1c 6.5 H (4.2-6.1) % 02/02/17 02/02/17 02/02/17 Range/Units 07:23 07:26 12:23 BUN 30 H (7-17) mg/dL Creatinine 1.61 H (0.52-1.04) mg/dL Glucose 209 H (74-99) mg/dL POC Glucose (mg/dL) 202 H 239 H (75-99) mg/dL Hemoglobin A1c (4.2-6.1) % Assessment and Plan Plan: #1. Acute on chronic dyspnea , secondary to deconditioning, obesity, possible component of cardiac pathology, however strongly doubt any pulmonary pathology to explain her shortness of breath. Patient can be seen on outpatient basis for follow-up, and a full PFT would be done on outpatient basis. #2. Elevated d-dimer 1.99 on 01/31/2017. Unable to do CTA chest to rule out PE , we'll proceed with VQ scan in view of patient's renal profile #3. Coronary artery disease with previous bypass surgery and previous coronary interventions and stenting #4. Morbid obesity #5. Diabetes mellitus, insulin-dependent #6. Hypothyroidism #7. Hypertension #8. History of skin cancer #9. Osteoarthritis Recommendation: Consider full evaluation by cardiology, and if cleared for discharge, patient can see me on outpatient basis. No need for bronchodilators , and no need for IV steroids. In the meantime patient was advised to lose weight. And continue follow-up with the guest experience manager. Time with Patient: Less than 30
[2017-02-02 17:09] LABS: Glucose,Whole Blood 161 mg/dL (75-99)
--- NOTE | 2017-02-02 18:14 | PN ---
PROGRESS NOTE DATE OF SERVICE: February 02, 2017. PRESENTING COMPLAINT: Short of breath. INTERVAL HISTORY: This patient with multiple medical problems presents with short of breath. [place] unlikely to be CHF. The patient had initially responded to some Lasix and steroids. Overall patient is feeling much better. REVIEW OF SYSTEMS: Done for constitutional, cardiovascular, GI, pulmonary, relevant findings as above. Some edema has gone down. Tolerated a diet. CURRENT MEDICATIONS: Include IV Lasix. PHYSICAL EXAMINATION: Temperature 97.2, pulse 71, respiratory 18, blood pressure 140/56, pulse ox 93% on room air. GENERAL APPEARANCE: Sitting up in a chair, comfortable. Eyes pupils equal. Conjunctivae normal. Neck JVD not raised. Mass not palpable. Respiratory effort normal. Lungs slightly distant breath sounds. Cardiovascular: Heart sounds muffled. Some edema along also with possibly some non pitting edema. Abdomen distended, soft. Liver and spleen not palpable. Psychiatry alert and oriented times three. Mood and affect normal. INVESTIGATIONS: Potassium 4.3, BUN 30, creatinine 1.61. 2D echo does not show any evidence of right ventricular enlargement. No pulmonary hypertension. ASSESSMENT: 1. Acute short of breath on examination, most likely from obesity, hypoventilation syndrome. 2. Bilateral lower extremity combination of venous insufficiency and probably lymphedema. 3. Morbid obesity. BMI 51.9. 4. Chronic kidney stage 4, probably from hypertensive nephrosclerosis. GFR 25. 5. Coronary artery disease prior history of coronary artery bypass grafting. 6. Diabetes mellitus, type 2, chronically on insulin. 7. Hyperlipidemia. 8. Essential hypertension. 9. Primary osteoarthritis multiple joints, bilateral. 10.Hypothyroid. PLAN: Patient's BNP is only 469. We will switch the patient over to p.o. Lasix. The patient is to attempt to try to lose some weight. We will give atilio wraps to the lower extremity. Await further input from Cardiology. Hopefully patient can be discharged tomorrow. MMODL / IJN: [id number] /
[2017-02-02] MEDS: DOCUSATE 100 MG CAP PO SCH (20:09)
[2017-02-02] MEDS: ATORVASTATIN 80 MG TAB PO SCH (20:09)
[2017-02-02] MEDS: MECLIZINE 25 MG TAB PO SCH (20:09)
[2017-02-02] MEDS: ALLOPURINOL 100 MG TAB PO SCH (20:10)
[2017-02-02] MEDS: FUROSEMIDE 40 MG TAB PO SCH (20:14)
[2017-02-02 20:36] LABS: Glucose,Whole Blood 186 mg/dL (75-99)
[2017-02-02] MEDS ORDERED: INSULIN GLARGINE 100 UNIT/ML 10 ML VIAL SQ SCH (21:00)
[2017-02-03] MEDS: traMADol 50 MG TAB PO PRN ×2 (00:08→09:20)
[2017-02-03] MEDS: LEVOTHYROXINE 75 MCG TAB PO SCH (06:29)
[2017-02-03 07:56] LABS: Glucose,Whole Blood 127 mg/dL (75-99)
[2017-02-03 08:06] VITALS: BP 147/65; PULSE 56; RESP 16; TEMP 97.1
--- NOTE | 2017-02-03 08:15 | CT ---
EXAMINATION TYPE: CT chest wo con DATE OF EXAM: 02/03/2017 COMPARISON: Chest x-ray from 3 days ago and older studies HISTORY: Patient complains of shortness of breath. CT DLP: 689.1 mGycm. Automated Exposure Control for Dose Reduction was Utilized. TECHNIQUE: CT scan of the thorax is performed without IV contrast. High-resolution protocol with 10 mm sequences obtained in supine technique. FINDINGS: Exam is suboptimal as patient cannot complete prone imaging. LUNGS: Respiratory motion artifact degradation is also present making evaluation suboptimal. There is some linear scarring in the left lung base. No significant peripheral reticulation and fibrosis othe rwise is identified. No large mass or area of consolidation is seen. No pleural effusion or pneumotho rax is noted. No significant bronchiectasis is present. MEDIASTINUM: Lack of IV contrast is noted to limit evaluation for mediastinal and especially hilar a denopathy. There are no definitive greater than 1 cm hilar or mediastinal lymph nodes. Post CABG wolff ges with mediastinal clips and sternal wires is seen. Cardiomegaly is present without pericardial eff usion. OTHER: There are some cortical thinning in both kidneys. There is exophytic low dense lesion laterall y left kidney on image 32 felt to reflect stable 2 cm simple appearing cyst. Gallbladder is surgicall y absent. Cholecystectomy clips are noted on localizer image. IMPRESSION: Cardiomegaly with mild to minimal left basilar linear scarring.
[2017-02-03 08:26] LABS: Calcium 9.5 mg/dL (8.4-10.2); Potassium 4.1 mmol/L (3.5-5.1)
[2017-02-03] MEDS: METOPROLOL TARTRATE 25 MG TAB PO SCH (09:17)
[2017-02-03] MEDS: MAGNESIUM OXIDE 400 MG TAB PO SCH (09:17)
[2017-02-03] MEDS: ASPIRIN 81 MG PO SCH (09:17)
[2017-02-03] MEDS: MECLIZINE 25 MG TAB PO SCH (09:17)
[2017-02-03] MEDS: FUROSEMIDE 40 MG TAB PO SCH (09:17)
[2017-02-03] MEDS: THIAMINE 100 MG TAB PO SCH (09:17)
[2017-02-03] MEDS: FOLIC ACID 1 MG TAB PO SCH (09:17)
[2017-02-03] MEDS: ENOXAPARIN 40 MG/0.4 ML SYRINGE SQ SCH (09:17)
[2017-02-03] MEDS: MULTIVITAMINS, THERA 1 EACH TAB PO SCH (09:17)
[2017-02-03] MEDS: ISOSORBIDE MONONITRATE ER 60 MG TAB.ER.24H PO SCH (09:17)
[2017-02-03] MEDS: INSULIN LISPRO (humaLOG) 300 UNIT/3 ML VIAL SQ SCH ×2 (09:25→12:26)
[2017-02-03 12:42] LABS: Glucose,Whole Blood 156 mg/dL (75-99)
--- NOTE | 2017-02-03 14:07 | P.PN ---
Subjective Progress Note Date: 02/03/17 Principal diagnosis: Exertional dyspnea secondary to obesity, deconditioning, and possible underlying cardiac component and diastolic heart failure This is a 76-year-old white female patient with past medical history of coronary artery disease, diabetes mellitus type 2, hyperlipidemia, hypertension , myocardial infarction, osteoarthritis, pneumonia, renal disease and hypothyroidism that presented to the emergency department on 01/31/2017 with with a complaint of increasing shortness of breath with any exertion and inability to lie down flat for the past few days. She states she is chronically short of breath on a regular basis but lately she has been having difficulty even ambulating around the house or preparing meals for herself without having to sit down and rest and catch her breath before proceeding. She has been sleeping in her recliner at night. 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 She has seasonal ALLERGIES and has sinus congestion on the regular basis for which she is on some type of nasal spray that was given to her by her PCP Dr. Juliann Welsh. She states that became worse with this episode of illness, she complains of slight frontal sinus pressure, itchy watery eyes, and postnasal drip. No significant cough, no wheezing, no rhonchi. She does not weigh herself at home, but she is on home dose Lasix on a regular basis with 40 mg in the morning and 20 mg in the afternoon. Chest x- ray from 01/31/2017 showed mild cardiomegaly but no evidence of heart failure, lungs are clear of infiltrates. No evidence of leukocytosis. D-dimer was elevated at 1.99. Her creatinine is at 1.94. Troponin is less than 0.012 and proBNP is 466. Patient was started on IV Lasix 40 every 12 hours, given IV Solu -Medrol and DuoNeb nebulized treatments. She states she is feeling somewhat better today, her breathing is still dyspneic on exertion even going to the bedside commode. No JVD appreciated, trace edema in lower extremities. Patient is morbidly obese. Lung sounds are clear to auscultation, no rhonchi, no wheezing or rales appreciated. She does not appear to be in any acute distress. She did have an episode of chest tightness yesterday in the morning prior to coming into the emergency room that was relieved with sublingual nitro. No chest pain while here in the hospital. Last echo from 02/02/2015 was reviewed and showed no evidence of pulmonary hypertension, right ventricular systolic pressure is normal at less than 35 mmHg. Mild MR and TR present. EF between 55 and 60%. This will be repeated today. Cardiology is following. In view of her elevated d-dimer, we will obtain a VQ scan, unable to do CTA chest related to her renal function. Diagnoses of COPD is unlikely. Patient was reevaluated today on 02/02/2017, doing well, she was mostly admitted with chronic shortness of breath upon exertion. Patient never smoked, and never had any documented history of asthma or COPD. Patient was felt to have shortness of breath secondary to deconditioning/obesity, and possibly some underlying cardiac component to explain her shortness of breath. Patient may have underlying coronary artery disease, she does have a cardiac history. At any rate her echocardiogram showed no evidence of pulmonary hypertension, she had some minimal mitral valve disease, she had normal ejection fraction, and her VQ scan was also normal, no evidence of thromboembolic disease. Patient again never smoked and she never had any documented history of COPD plus or symptoms of mild COPD symptoms. And the clinical findings on her pulmonary exam are relatively normal On 02/03/2017 patient's dyspnea is much improved with ambulation. She is able to ambulate with physical therapy without significant respiratory distress. She has been ruled out for any significant pulmonary abnormality. She may have dyspnea secondary to her overall deconditioning and morbid obesity in addition to underlying coronary artery disease. Lung sounds are clear, no rhonchi no wheezes, no rales. She is 97% on room air, no fever no chills. No significant chest congestion. She is clear for discharge from pulmonary standpoint. Objective - Vital Signs Vital signs: Vital Signs Temp 97.1 F L 02/03/17 07:00 Pulse 56 L 02/03/17 07:00 Resp 16 02/03/17 08:00 BP 147/65 02/03/17 07:00 Pulse Ox 97 02/03/17 07:00 Intake & Output 02/02/17 02/03/17 02/03/17 18:59 06:59 18:59 Intake Total 240 Balance 240 Weight 121 kg 120.1 kg Intake: Oral 240 Other: # Voids 2 3 # Bowel Movements 1 - Exam Obese, comfortable not in acute distress. Head exam was generally normal. There was no scleral icterus or corneal arcus. Mucous membranes were moist. Neck is supple and there is significant crowding of the posterior pharynx. No goiter or neck masses. Lungs sounds are diminished and no rackles in the lung bases. No wheezes. No rhonchi. Cardiac exam revealed the PMI to be normally situated and sized. The rhythm was regular and no extrasystoles. There were no murmurs, rubs, clicks, or gallops. Sternum stable clean and intact. Abdominal exam revealed normal bowel sounds. The abdomen was soft, non-tender, and without masses, organomegaly, or appreciable enlargement of the abdominal aorta. Examination of the extremities revealed easily palpable radial, femoral and pedal pulses. There was no cyanosis, clubbing or edema. Skin: No rashes, no nevi. Normal color and turgor Neurologic: Cranial nerves II through XII are grossly intact, no focal deficits Psychiatric: A and O 3, appropriate insight and judgment - Labs CBC & Chem 7: 01/31/17 19:30 02/03/17 07:53 Labs: Abnormal Lab Results - Last 24 Hours (Table) 02/02/17 02/02/17 02/03/17 Range/Units 17:05 20:35 07:53 BUN 38 H (7-17) mg/dL Creatinine 1.92 H (0.52-1.04) mg/dL Glucose 129 H (74-99) mg/dL POC Glucose (mg/dL) 161 H 186 H (75-99) mg/dL 02/03/17 02/03/17 Range/Units 07:53 11:59 BUN (7-17) mg/dL Creatinine (0.52-1.04) mg/dL Glucose (74-99) mg/dL POC Glucose (mg/dL) 127 H 156 H (75-99) mg/dL Assessment and Plan Plan: Assessment: #1. Acute dyspnea due to probable acute congestive heart failure, likely diastolic based on her echocardiogram from 01/31/2015 with EF of 55-60%. There is a component of general deconditioning and obesity related chronic dyspnea. Diagnoses of COPD is less likely. #2. Elevated d-dimer 1.99 on 01/31/2017. Unable to do CTA chest to rule out PE , VQ scan from 02/01/2017 was within normal limits, with no evidence of mismatch defects. #3. Coronary artery disease with previous bypass surgery and previous coronary interventions and stenting #4. Morbid obesity #5. Diabetes mellitus, insulin-dependent #6. Hypothyroidism #7. Hypertension #8. History of skin cancer #9. Osteoarthritis Plan Patient's dyspnea has improved since her admission per her statement. She is able to ambulate about the room without significant distress. Patient was advised to follow-up with Dr. Awad on an outpatient basis for an outpatient PFT. She is not sure if Medicare will cover visits with the the lung specialist. Stable for discharge from pulmonary standpoint. I performed a history & physical examination of the patient and discussed their management with my nurse practitioner, Nicol Larson. I reviewed the nurse practitioner's note and agree with the documented findings and plan of care. Lung sounds are clear diminished at the bases. No rhonchi no wheezing, no signs of chest congestion. VQ was negative for any evidence of PE. I attest the documentation by the nurse practitioner
--- NOTE | 2017-02-03 17:35 | CONS ---
CONSULTATION Mrs. Moreau is a 76-year-old female who is seen for cardiac evaluation. Patient's medical record is reviewed. This patient is known to us. Patient has a known history of coronary artery disease with prior history of coronary artery bypass surgery and stent to the RCA. Patient has a history of hypertension, hyperlipidemia, prior myocardial infarction and chronic renal failure. The patient came to the hospital with a complaint of increasing shortness of breath, mostly with exertion. She did not have any significant fever or chills. Denies any cough with expectoration. Patient's chest x-ray showed mild cardiomegaly without any evidence of any significant failure. There was no evidence of any leukocytosis and patient's proBNP level was 466. Patient is morbidly obese. PAST MEDICAL HISTORY: Past medical history includes: 1. History of coronary artery bypass surgery. 2. History of stent. 3. History of chronic renal disease. 4. Osteoarthritis. 5. History of bilateral cataract surgery. 6. Cholecystectomy. 7. Orthopedic surgery. HOME MEDICATIONS: Patients' home medications included: 1. Lipitor 80 mg daily. 2. Baby aspirin once a day. 3. Synthroid 150 mcg daily. 4. Zyloprim. 5. Insulin. 6. Isordil 120 mg b.i.d. 7. Tramadol 50 mg daily. PHYSICAL EXAMINATION: Physical examination at present reveals a 76-year-old morbidly obese female who does not appear to be in any acute distress. Patient's blood pressure is 130/80 mmHg. Head/ENT examination is negative. NECK: Supple. There is no increase in jugular venous pressure. Both the carotid pulses are felt. There is no bruit. Chest is symmetrical. HEART: The PMI is not felt. First and second heart sounds are normal. Lungs are clinically clear to auscultation and percussion. Abdomen is negative. EXTREMITIES: No significant leg edema is noted. IMAGING AND LABS: Chest x-ray does not show any evidence of failure. The patient's proBNP level is 466. Echocardiogram reveals normal left ventricular systolic function. No significant diastolic function was noted. FINAL IMPRESSION: This patient is admitted with exertional shortness of breath, exact etiology undetermined. There is no evidence of any significant left ventricular failure or right- sided failure. Her diastolic function is fairly normal. She does not have underlying significant chronic obstructive pulmonary disease and her perfusion lung scan was normal. We will obtain a high-resolution noncontrast CT scan to rule out any pulmonary fibrosis. Most likely this patient's symptoms of shortness of breath are due to the morbid obesity and deconditioning. The patient can be considered for cardiac rehab as an outpatient, which may help to improve her symptoms. AYALA / ASHLEY: [id number] /
--- NOTE | 2017-02-03 23:16 | P.DS ---
Providers Date of admission: 01/31/17 20:49 Expected date of discharge: 02/03/17 Attending physician: Abiodun Beaulieu Consults: 01/31/17 20:49 Consult Physician Routine Consulting Provider: Cayla Rodriguez Consult Reason/Comments: chf Do you want consulting provider notified?: Yes 01/31/17 20:51 Consult Physician Routine Consulting Provider: Alan Harrington Consult Reason/Comments: known Do you want consulting provider notified?: Yes Primary care physician: Ric Welsh [facility] Course: FINAL DIAGNOSES: -Acute short of breath on examination most likely from obesity, hypoventilation syndrome. -Bilateral lower extremity combination of venous insufficiency and probably lymphedema. -Morbid obesity 51.9. -Chronic kidney disease stage IV. From hypertensive nephrosclerosis GFR 25. -Coronary artery disease prior history of coronary artery bypass grafting. -Diabetes mellitus type 2 chronically on insulin. -Hyperlipidemia. -Essential hypertension. -Primary osteoarthritis multiple joints, bilateral. -Hypothyroidism. HOSPTIAL COURSE: 76-year-old female presented with shortness of breath admitted for the same cardiology and pulmonology consulted. Patient was very responsive to Lasix and steroids. Pulmonology felt no need for bronchodilators or IV steroids in the in the future, advised to lose weight. Cardiology felt there is no evidence of significant left ventricular rate sided heart failure. Shortness of breath felt to be directly related to morbid obesity and deconditioning. Condition improved, ambulatory within the room and hallway, tolerating her diet anxious to return home. Cleared by both cardiology and pulmonology for discharge condition stable and appropriate for discharge. PHYSICAL EXAM: CARDIOVASCULAR: First and second sound noted, moderate edema RESPIRATORY: Effort normal, lung sounds diminished bilaterally PSYCHIATRY: Alert and oriented 3 and affect normal. Patient was seen and examined by nurse practitioner Tahmina Vasquez in all elements of the case discussed with attending Dr. Beaulieu DISPOSITION: Discharge home Patient Condition at Discharge: Stable Plan - Discharge Summary New Discharge Prescriptions: New Sennosides/Docusate Sodium [Geno Colace] 1 tab PO DAILY #1 tab Continue Aspirin 81 mg PO DAILY Multivitamins, Thera [Multivitamin (formulary)] 1 tab PO DAILY Levothyroxine Sodium [Synthroid] 150 mcg PO DAILY Atorvastatin [Lipitor] 80 mg PO HS Magnesium Oxide [Mag-Ox] 400 mg PO DAILY Metoprolol Tartrate [Lopressor] 25 mg PO BID #60 tab Allopurinol [Zyloprim] 200 mg PO HS Folic Acid 1 mg PO DAILY Insulin Glulisine [Apidra Solostar] 10 - 30 unit SQ HS PRN PRN Reason: Blood Sugar - High traMADol HCL [Ultram] 50 mg PO Q6H PRN PRN Reason: Pain Nitroglycerin Sl Tabs [Nitrostat] 0.4 mg PO Q5M PRN PRN Reason: Chest Pain Insulin Glargine,Hum.rec.anlog [Toujeo Solostar] 65 units SQ HS Cranberry Fruit Extract [Cranberry] 200 mg PO DAILY Thiamine [Vitamin B-1] 100 mg PO DAILY Isosorbide Mononitrate [Imdur] 120 mg PO BID Changed Furosemide [Lasix] 40 mg PO BID #0 Discontinued Meclizine [Antivert] 25 mg PO HS Docusate Sodium [Dok] 100 mg PO HS Furosemide [Lasix] 20 mg PO DAILY@1500 Discharge Medication List Aspirin 81 mg PO DAILY 01/30/15 [History] Atorvastatin [Lipitor] 80 mg PO HS 01/30/15 [History] Levothyroxine Sodium [Synthroid] 150 mcg PO DAILY 01/30/15 [History] Multivitamins, Thera [Multivitamin (formulary)] 1 tab PO DAILY 01/30/15 [History ] Magnesium Oxide [Mag-Ox] 400 mg PO DAILY 03/27/15 [History] Metoprolol Tartrate [Lopressor] 25 mg PO BID #60 tab 03/28/15 [Rx] Allopurinol [Zyloprim] 200 mg PO HS 05/15/16 [History] Folic Acid 1 mg PO DAILY 05/15/16 [History] Insulin Glulisine [Apidra Solostar] 10 - 30 unit SQ HS PRN 05/30/16 [History] Cranberry Fruit Extract [Cranberry] 200 mg PO DAILY 01/31/17 [History] Insulin Glargine,Hum.rec.anlog [Toujeo Solostar] 65 units SQ HS 01/31/17 [ History] Isosorbide Mononitrate [Imdur] 120 mg PO BID 01/31/17 [History] Nitroglycerin Sl Tabs [Nitrostat] 0.4 mg PO Q5M PRN 01/31/17 [History] Thiamine [Vitamin B-1] 100 mg PO DAILY 01/31/17 [History] traMADol HCL [Ultram] 50 mg PO Q6H PRN 01/31/17 [History] Furosemide [Lasix] 40 mg PO BID #0 02/03/17 [Rx] Sennosides/Docusate Sodium [Geno Colace] 1 tab PO DAILY #1 tab 02/03/17 [Rx] Follow up Appointment(s)/Referral(s): Everett Awad MD [STAFF PHYSICIAN] - 1 Week (Office closed call for appt) Ric Welsh DO [Primary Care Provider] - 02/06/17 1:15 pm Ambulatory/Diagnostic Orders: Basic Metabolic Panel [LAB.AMB] Time Frame: 3 Days, Location: Determined By Patient Patient Instructions/Handouts: Type 2 Diabetes in Adults (DC), COPD (Chronic Obstructive Pulmonary Disease) (DC) Discharge Disposition: HOME SELF-CARE
--- NOTE | 2017-02-04 06:58 | DS ---
DISCHARGE SUMMARY DATE OF SERVICE: February 03, 2017 ATTENDING NOTE: This patient seen and examined by me. I discussed with nurse practitioner, Ms. Vasquez. The patient doing much better today. Does not use atilio wraps since he is not able to actually put them on and is felt short of breath, probably from obesity hypoventilation syndrome. PE was ruled out. The patient has chronic kidney disease. EXAM: Lungs distant breath sounds. Some nonpitting edema. Patient may have an element of lymphedema in the lower extremity too. Care was discussed with the patient. MMODL / IJN: [id number] /
== END 2017-02-03 14:26 | disposition home or self-care (01) | DRG 206 ==
LOC: EC 19:17 → 4MS4W 20:49
PROVIDERS: ADMIT Hospitalist; ATTEND Hospitalist
DX: E66.2 Morbid (severe) obesity with alveolar hypoventilation (principal); N18.4 Chronic kidney disease, stage 4 (severe); I13.0 Hypertensive heart and chronic kidney disease with heart failure and stage 1 through stage 4 chronic kidney disease, or unspecified chronic kidney disease; I50.32 Chronic diastolic (congestive) heart failure; E11.22 Type 2 diabetes mellitus with diabetic chronic kidney disease; I08.1 Rheumatic disorders of both mitral and tricuspid valves; E03.9 Hypothyroidism, unspecified; E78.5 Hyperlipidemia, unspecified; I25.10 Atherosclerotic heart disease of native coronary artery without angina pectoris; I25.2 Old myocardial infarction; I87.2 Venous insufficiency (chronic) (peripheral); I89.0 Lymphedema, not elsewhere classified; J30.2 Other seasonal allergic rhinitis; M10.9 Gout, unspecified; M15.9 Polyosteoarthritis, unspecified; R79.1 Abnormal coagulation profile; H26.9 Unspecified cataract; R09.81 Nasal congestion; J44.9 Chronic obstructive pulmonary disease, unspecified; C44.90 Unspecified malignant neoplasm of skin, unspecified; Z68.43 Body mass index [BMI] 50.0-59.9, adult; Z79.4 Long term (current) use of insulin; Z79.82 Long term (current) use of aspirin; Z79.899 Other long term (current) drug therapy; Z79.02 Long term (current) use of antithrombotics/antiplatelets; Z85.828 Personal history of other malignant neoplasm of skin; Z88.5 Allergy status to narcotic agent; Z88.8 Allergy status to other drugs, medicaments and biological substances; Z95.5 Presence of coronary angioplasty implant and graft; Z95.1 Presence of aortocoronary bypass graft; Z87.891 Personal history of nicotine dependence; Z80.9 Family history of malignant neoplasm, unspecified
CPT/HCPCS: 36415; 71020; 71250; 78582; 80048; 80053; 82550; 82553; 83036; 83735; 83880; 84484; 85025; 85379; 85610; 85730; 93005; 93306; 94640; 96361; 96374; 99285